=== PATIENT | female | born 1950 | race Caucasian/White ===

== ENCOUNTER 2018-05-07 20:37 | Outpatient (REF) | payer OTHER, SELFPAY ==
[2018-05-07 21:04] LABS: Anion Gap 9.6 mmol/L (3-11); BUN 26 mg/dL (7-18); CO2 30.4 mmol/L (21.0-32.0); CREATININE 0.95 mg/dL (0.55-1.02); Calcium 8.6 mg/dL (8.5-10.1); Chloride 103 mmol/L (98-107); Glucose 58 mg/dL (70-100); Potassium 4.5 mmol/L (3.5-5.1); Sodium 143 mmol/L (136-145)
== END 2018-05-07 20:38 ==
LOC: NCHCN 20:37
PROVIDERS: PCP Nurse Practitioner Family; Visit Provider Nurse Practitioner Family
DX: I10 Essential (primary) hypertension (principal); E11.49 Type 2 diabetes mellitus with other diabetic neurological complication; I70.0 Atherosclerosis of aorta; H91.90 Unspecified hearing loss, unspecified ear; N39.46 Mixed incontinence
CPT/HCPCS: 80048

== ENCOUNTER 2019-01-18 16:38 | Outpatient (REF) | payer OTHER, SELFPAY ==
--- NOTE | 2019-01-18 15:00 | ENDOMET_PTH ---
PATIENT: Leslie Dimas LOC: [facility] U#:[id number] AGE/SX: 68/F ROOM: RE01/18/[address]: Yenny Caceres : 1950 BED: DIS: 01/18/2019 SPEC #: [id number] RECD: 01/19/19 11:57 STATUS: WILMER REQ #: [id number] KARON: 01/18/19 15:[address]: Yenny Hightower DEPT: Surgical Specimen RECD BY: Lolis Irizarry ENTERED: 01/19/19 11:57 SP TYPE: Endomet OTHR DR: Harmony Morocho Tissues: 1 - ENDOMETRIUM BX/INOCENTE Procedures: GROSS AND MICRO LEVEL 4 Comments: [id number]
== END 2019-01-18 16:58 ==
LOC: NCHCN 16:38
PROVIDERS: PCP Nurse Practitioner Family; Visit Provider Nurse Practitioner Family
DX: N85.02 Endometrial intraepithelial neoplasia [EIN] (principal); N95.0 Postmenopausal bleeding; E66.9 Obesity, unspecified
CPT/HCPCS: 88305

== ENCOUNTER 2019-09-12 21:22 | Outpatient (REF) | payer OTHER, SELFPAY ==
[2019-09-12 21:57] LABS: COMMENT (LAB VIEW ONLY) 65.19 mg/dL
== END 2019-09-12 21:42 ==
LOC: NCHCN 21:22
PROVIDERS: PCP Nurse Practitioner Family; Visit Provider Nurse Practitioner Family
DX: E11.49 Type 2 diabetes mellitus with other diabetic neurological complication (principal); I10 Essential (primary) hypertension
CPT/HCPCS: 82043; 82570

== ENCOUNTER 2019-09-29 13:33 | Outpatient (REF) | payer OTHER, SELFPAY ==
[2019-09-29 21:30] LABS: Anion Gap 8.8 mmol/L (3-11); BUN 33 mg/dL (7-18); CO2 29.2 mmol/L (21.0-32.0); CREATININE 1.03 mg/dL (0.55-1.02); Calcium 9.4 mg/dL (8.5-10.1); Chloride 102 mmol/L (98-107); Estimated GFR 53.13 (mL/min/1.73m2); Glucose 87 mg/dL (74-106); Potassium 4.8 mmol/L (3.5-5.1); Sodium 140 mmol/L (136-145)
== END 2019-09-29 13:53 ==
LOC: NCHCN 13:33
PROVIDERS: PCP Nurse Practitioner Family; Visit Provider Nurse Practitioner Family
DX: E11.49 Type 2 diabetes mellitus with other diabetic neurological complication (principal); I10 Essential (primary) hypertension
CPT/HCPCS: 80048

== ENCOUNTER 2019-10-26 21:49 | Outpatient (REF) | payer OTHER, SELFPAY ==
[2019-10-26 21:51] LABS: Anion Gap 6.3 mmol/L (3-11); BUN 42 mg/dL (7-18); CO2 31.7 mmol/L (21.0-32.0); CREATININE 1.04 mg/dL (0.55-1.02); Calcium 9.4 mg/dL (8.5-10.1); Chloride 103 mmol/L (98-107); Estimated GFR 52.54 (mL/min/1.73m2); Glucose 100 mg/dL (74-106); Potassium 4.6 mmol/L (3.5-5.1); Sodium 141 mmol/L (136-145)
== END 2019-10-26 22:09 ==
LOC: NCHCN 21:49
PROVIDERS: PCP Nurse Practitioner Family; Visit Provider Nurse Practitioner Family
DX: I10 Essential (primary) hypertension (principal); E11.49 Type 2 diabetes mellitus with other diabetic neurological complication
CPT/HCPCS: 80048

== ENCOUNTER 2019-12-22 12:08 | Outpatient (REF) | payer OTHER, SELFPAY ==
[2019-12-22 20:34] LABS: Abs Immature Grans 0.09 k/cumm (0.0-0.09); Absolute Basophil Count 0.03 k/cumm (0.0-0.2); Absolute Lymphocyte Count 1.33 k/cumm (1.2-3.4); Absolute Monocyte Count 0.92 k/cumm (0.11-0.7); Basophils % 0.2; Eosinophils % 0.8; HCT 41.4 % (36.0-46.0); HGB 13.4 g/dL (12.0-15.5); Immature Grans % 0.6 %; Lymphocytes % 9.1; Mean Corp. HGB Concentration 32.4 g/dL (32.0-36.0); Mean Corpuscular Hemoglobin 27.8 pg (27.0-33.0); Mean Corpuscular Volume 85.9 fL (80-95); Mean Platelet Volume 9.5 fL (8.0-11.0); Monocytes % 6.3; Platelet Count 345 x1000/uL (130-400); RBC 4.82 m/cumm (4.00-5.20); RBC Distribution Width 14.7 % (11.7-14.6); White Blood Cell Count 14.63 k/cumm (4.4-10.8)
[2019-12-22 20:41] LABS: Absolute Eosinophil Count 0.12 k/cumm (0.0-0.7); Absolute Neutrophil Count 12.14 k/cumm (1.2-6.7)
[2019-12-22 21:23] LABS: ALT 27 U/L (14-59); AST 19 U/L (15-37); Albumin 4.1 g/dL (3.4-5.0); Alkaline Phosphatase 86 U/L (46-116); BUN 59 mg/dL (7-18); Bilirubin, Total 0.5 mg/dL (0.2-1.0); Calcium 10.2 mg/dL (8.5-10.1); Chloride 99 mmol/L (98-107); Estimated GFR 34.43 (mL/min/1.73m2); Glucose 169 mg/dL (74-106); Lipase 63 U/L (73-393); Potassium 5.7 mmol/L (3.5-5.1); Sodium 137 mmol/L (136-145)
[2019-12-22 21:24] LABS: Hemoglobin A1C 7.2 % (3.8-5.6)
[2019-12-22 22:01] LABS: Vitamin B12 589 pg/mL (193-986)
== END 2019-12-22 12:28 ==
LOC: NCHCN 12:08
PROVIDERS: PCP Nurse Practitioner Family; Visit Provider Nurse Practitioner Family
DX: E11.49 Type 2 diabetes mellitus with other diabetic neurological complication (principal); I10 Essential (primary) hypertension; R11.0 Nausea; R63.4 Abnormal weight loss
CPT/HCPCS: 80053; 83690; 82607; 83036; 84443; 85025

== ENCOUNTER 2019-12-30 09:54 | Outpatient (REF) | payer OTHER, SELFPAY ==
[2019-12-30 20:06] LABS: Abs Immature Grans 0.07 k/cumm (0.0-0.09); Absolute Basophil Count 0.03 k/cumm (0.0-0.2); Absolute Lymphocyte Count 1.69 k/cumm (1.2-3.4); Absolute Monocyte Count 1.08 k/cumm (0.11-0.7); Basophils % 0.3; Eosinophils % 1.1; HCT 37.9 % (36.0-46.0); HGB 12.2 g/dL (12.0-15.5); Immature Grans % 0.6 %; Lymphocytes % 14.8; Mean Corp. HGB Concentration 32.2 g/dL (32.0-36.0); Mean Corpuscular Hemoglobin 28.2 pg (27.0-33.0); Mean Corpuscular Volume 87.5 fL (80-95); Mean Platelet Volume 9.6 fL (8.0-11.0); Monocytes % 9.5; Neutrophils % 73.7; Platelet Count 347 x1000/uL (130-400); RBC 4.33 m/cumm (4.00-5.20); RBC Distribution Width 14.5 % (11.7-14.6); White Blood Cell Count 11.41 k/cumm (4.4-10.8)
[2019-12-30 20:12] LABS: Absolute Eosinophil Count 0.13 k/cumm (0.0-0.7); Absolute Neutrophil Count 8.41 k/cumm (1.2-6.7)
[2019-12-30 20:17] LABS: Anion Gap 9.9 mmol/L (3-11); BUN 56 mg/dL (7-18); CO2 28.1 mmol/L (21.0-32.0); CREATININE 1.29 mg/dL (0.55-1.02); Calcium 9.1 mg/dL (8.5-10.1); Chloride 102 mmol/L (98-107); Estimated GFR 40.98 (mL/min/1.73m2); Glucose 192 mg/dL (74-106); Potassium 5.2 mmol/L (3.5-5.1); Sodium 140 mmol/L (136-145)
== END 2019-12-30 10:14 ==
LOC: NCHCN 09:54
PROVIDERS: PCP Nurse Practitioner Family; Visit Provider Nurse Practitioner Family
DX: R11.0 Nausea (principal)
CPT/HCPCS: 80048; 85025

== ENCOUNTER 2020-08-16 12:07 | Outpatient (REF) | payer OTHER, SELFPAY ==
[2020-08-16 20:57] LABS: HCT 36.8 % (36.0-46.0); HGB 11.7 g/dL (11.2-15.7); MCH 27.9 pg (27.0-33.0); MCHC 31.8 % (32.0-36.0); MCV 87.8 fL (80-95); MPV 9.8 fL (8.0-11.0); Platelet Count 278 10^3/uL (130-400); RBC 4.19 10^6/uL (3.93-5.22); RDW 14.2 % (11.7-14.6); RDW-SD 45.1 fL; WBC 11.54 10^3/uL (4.4-10.8)
[2020-08-16 21:26] LABS: Iron 43 ug/dL (50-170)
[2020-08-16 21:48] LABS: Vitamin D 25 Total 14.1 ng/ml (30-100)
[2020-08-16 22:02] LABS: BUN 59 mg/dL (7-18); CREATININE 1.33 mg/dL (0.55-1.02); Calcium 9.2 mg/dL (8.5-10.1); Chloride 100 mmol/L (98-107); Estimated GFR 39.44 (mL/min/1.73m2); Glucose 130 mg/dL (74-106); Magnesium 1.4 mg/dL (1.8-2.4); Potassium 4.3 mmol/L (3.5-5.1); Sodium 139 mmol/L (136-145); TSH 6.55 uIU/mL (0.36-3.74); Vitamin B12 469 pg/mL (193-986)
[2020-08-17 11:54] LABS: FREE T4 0.88 ng/dL (0.76-1.46)
[2020-08-17 12:20] LABS: Ferritin 130 ng/mL (8-252)
== END 2020-08-16 12:27 ==
LOC: NCHCN 12:07
PROVIDERS: PCP Nurse Practitioner Family; Visit Provider Nurse Practitioner Family
DX: R94.6 Abnormal results of thyroid function studies (principal); E61.1 Iron deficiency; E11.49 Type 2 diabetes mellitus with other diabetic neurological complication; I10 Essential (primary) hypertension; E66.01 Morbid (severe) obesity due to excess calories; Z98.84 Bariatric surgery status; N39.46 Mixed incontinence; G47.8 Other sleep disorders
CPT/HCPCS: 80048; 82306; 85027; 82607; 82728; 83540; 83735; 84439; 84443

== ENCOUNTER 2020-10-17 19:42 | Outpatient (REF) | payer OTHER, SELFPAY ==
[2020-10-17 22:39] LABS: Anion Gap 6.8 mmol/L (3-11); BUN 42 mg/dL (7-18); CO2 31.2 mmol/L (21.0-32.0); CREATININE 1.27 mg/dL (0.55-1.02); Calcium 9.4 mg/dL (8.5-10.1); Chloride 100 mmol/L (98-107); Glucose 146 mg/dL (74-106); Magnesium 1.9 mg/dL (1.8-2.4); Potassium 4.5 mmol/L (3.5-5.1); Sodium 138 mmol/L (136-145); TSH 4.61 uIU/mL (0.36-3.74)
[2020-10-18 04:53] LABS: Vitamin D 25 Total 25.1 ng/ml (30-100)
[2020-10-19 19:08] LABS: Thyroperoxidase Antibody <28 U/mL (<=60)
[2020-10-19 19:12] LABS: Thyroglobulin Antibody 19 U/mL (<=60)
== END 2020-10-17 20:02 ==
LOC: NCHCN 19:42
PROVIDERS: PCP Nurse Practitioner Family; Visit Provider Nurse Practitioner Family
DX: I10 Essential (primary) hypertension (principal); E83.42 Hypomagnesemia; E55.9 Vitamin D deficiency, unspecified; R94.6 Abnormal results of thyroid function studies
CPT/HCPCS: 80048; 82306; 83735; 84443; 86376; 86800

== ENCOUNTER 2020-12-18 13:32 | Outpatient (REF) | payer OTHER, SELFPAY ==
[2020-12-18 14:01] LABS: HCT 37.7 % (36.0-46.0); HGB 11.9 g/dL (11.2-15.7); MCH 28.3 pg (27.0-33.0); MCHC 31.6 % (32.0-36.0); MCV 89.5 fL (80-95); MPV 9.4 fL (8.0-11.0); Platelet Count 274 10^3/uL (130-400); RBC 4.21 10^6/uL (3.93-5.22); RDW 14.2 % (11.7-14.6); RDW-SD 46.5 fL
[2020-12-18 14:18] LABS: Iron 49 ug/dL (50-170); Total Iron Binding Capacity 364 ug/dL (250-450); Transferrin Sat 13 % (15-50)
[2020-12-18 14:23] LABS: Hemoglobin A1C 8.5 % (<5.7)
[2020-12-18 14:35] LABS: ALT 26 U/L (14-59); AST 17 U/L (15-37); Albumin 3.7 g/dL (3.4-5.0); Alkaline Phosphatase 78 U/L (46-116); Anion Gap 10.1 mmol/L (3-11); BUN 48 mg/dL (7-18); Bilirubin, Total 0.4 mg/dL (0.2-1.0); CO2 30.9 mmol/L (21.0-32.0); CREATININE 1.3 mg/dL (0.55-1.02); Calcium 9.2 mg/dL (8.5-10.1); Chloride 99 mmol/L (98-107); Estimated GFR 40.49 (mL/min/1.73m2); Ferritin 115 ng/mL (8-252); Glucose 218 mg/dL (74-106); Magnesium 1.8 mg/dL (1.8-2.4); Potassium 4.6 mmol/L (3.5-5.1); Sodium 140 mmol/L (136-145); TSH (W/Ref FT4) 2.55 uIU/mL (0.36-3.74); Total Protein 7.5 g/dL (6.4-8.2); Vitamin B12 525 pg/mL (193-986)
[2020-12-19 10:40] LABS: Vitamin D 25 Total 30.6 ng/ml (30-100)
== END 2020-12-18 13:33 | disposition home or self-care (01) ==
LOC: NCHCN 13:32
PROVIDERS: PCP Nurse Practitioner Family; Visit Provider Nurse Practitioner Family
DX: E11.49 Type 2 diabetes mellitus with other diabetic neurological complication (principal); I10 Essential (primary) hypertension; R94.6 Abnormal results of thyroid function studies; E61.1 Iron deficiency; K90.9 Intestinal malabsorption, unspecified; E55.9 Vitamin D deficiency, unspecified; E83.42 Hypomagnesemia; R82.998 Other abnormal findings in urine
CPT/HCPCS: 80053; 82306; 85027; 82607; 82728; 83036; 83540; 83550; 83735; 84443; 87086

== ENCOUNTER 2021-03-19 12:18 | Outpatient (REF) | payer OTHER, SELFPAY ==
[2021-03-19 21:18] LABS: Anion Gap 8.1 mmol/L (3-11); BUN 55 mg/dL (7-18); CO2 30.9 mmol/L (21.0-32.0); CREATININE 1.5 mg/dL (0.55-1.02); Calcium 9.3 mg/dL (8.5-10.1); Chloride 102 mmol/L (98-107); Estimated GFR 34.33 (mL/min/1.73m2); Glucose 100 mg/dL (74-106); Potassium 4.3 mmol/L (3.5-5.1); Sodium 141 mmol/L (136-145)
[2021-03-21 11:29] LABS: Hepatitis C Ab w Rflx HCV PCR Negative (Negative)
== END 2021-03-19 12:19 | disposition home or self-care (01) ==
LOC: NCHCN 12:18
PROVIDERS: PCP Nurse Practitioner Family; Visit Provider Nurse Practitioner Family
DX: E11.49 Type 2 diabetes mellitus with other diabetic neurological complication (principal); I10 Essential (primary) hypertension; Z11.59 Encounter for screening for other viral diseases
CPT/HCPCS: 80048; 86803

== ENCOUNTER 2021-04-09 12:54 | Outpatient (REF) | payer OTHER, SELFPAY ==
[2021-04-09 21:19] LABS: Anion Gap 9.3 mmol/L (3-11); BUN 39 mg/dL (7-18); CO2 28.7 mmol/L (21.0-32.0); CREATININE 1.3 mg/dL (0.55-1.02); Calcium 9.2 mg/dL (8.5-10.1); Chloride 104 mmol/L (98-107); Estimated GFR 40.38 (mL/min/1.73m2); Glucose 180 mg/dL (74-106); Potassium 5.3 mmol/L (3.5-5.1); Sodium 142 mmol/L (136-145)
== END 2021-04-09 12:55 | disposition home or self-care (01) ==
LOC: NCHCN 12:54
PROVIDERS: PCP Nurse Practitioner Family; Visit Provider Nurse Practitioner Family
DX: N18.9 Chronic kidney disease, unspecified (principal)
CPT/HCPCS: 80048

== ENCOUNTER 2021-04-29 11:03 | Outpatient (REF) | payer OTHER, SELFPAY ==
[2021-04-29 15:54] LABS: Anion Gap 7.6 mmol/L (3-11); BUN 59 mg/dL (7-18); CO2 30.4 mmol/L (21.0-32.0); CREATININE 1.2 mg/dL (0.55-1.02); Calcium 9.6 mg/dL (8.5-10.1); Chloride 102 mmol/L (98-107); Estimated GFR 44.29 (mL/min/1.73m2); Glucose 90 mg/dL (74-106); Potassium 4.7 mmol/L (3.5-5.1); Sodium 140 mmol/L (136-145)
== END 2021-04-29 11:04 | disposition home or self-care (01) ==
LOC: NCHCN 11:03
PROVIDERS: PCP Nurse Practitioner Family; Visit Provider Nurse Practitioner Family
DX: I51.9 Heart disease, unspecified (principal); I70.0 Atherosclerosis of aorta; N18.30 Chronic kidney disease, stage 3 unspecified; E66.01 Morbid (severe) obesity due to excess calories
CPT/HCPCS: 80048

== ENCOUNTER 2021-08-08 13:15 | Outpatient (REF) | payer MEDICARE, SELFPAY ==
[2021-08-09 01:59] LABS: COMMENT (LAB VIEW ONLY) 86.68 mg/dL; Microalb ug/mg Crea 12.8 ug/mg Cr
== END 2021-08-08 13:16 | disposition home or self-care (01) ==
LOC: NCHCN 13:15
PROVIDERS: PCP Nurse Practitioner Family; Visit Provider Nurse Practitioner Family
DX: I10 Essential (primary) hypertension (principal); E11.49 Type 2 diabetes mellitus with other diabetic neurological complication
CPT/HCPCS: 82043; 82570

== ENCOUNTER 2021-09-16 15:25 | Outpatient (REF) | payer MEDICARE, SELFPAY ==
[2021-09-18 11:37] LABS: COVID-19 RT-PCR UVMMC Result Negative (Negative)
== END 2021-09-16 15:26 | disposition home or self-care (01) ==
LOC: NCHCN 15:25
PROVIDERS: PCP Nurse Practitioner Family; Visit Provider Family Medicine
DX: J06.9 Acute upper respiratory infection, unspecified (principal); Z20.822 Contact with and (suspected) exposure to COVID-19
CPT/HCPCS: U0003; U0005

== ENCOUNTER 2021-10-10 18:32 | Outpatient (REF) | payer MEDICARE, SELFPAY ==
[2021-10-10 21:59] LABS: HCT 37.5 % (36.0-46.0); HGB 11.5 g/dL (11.2-15.7); MCH 27.3 pg (27.0-33.0); MCHC 30.7 % (32.0-36.0); MCV 88.9 fL (80-95); Platelet Count 286 10^3/uL (130-400); RBC 4.22 10^6/uL (3.93-5.22); RDW 14.4 % (11.7-14.6); RDW-SD 46.3 fL; WBC 11.75 10^3/uL (4.4-10.8)
[2021-10-10 22:17] LABS: ALT 20 U/L (14-59); AST 14 U/L (15-37); Albumin 3.5 g/dL (3.4-5.0); Alkaline Phosphatase 76 U/L (46-116); BUN 45 mg/dL (7-18); Bilirubin, Total 0.5 mg/dL (0.2-1.0); CREATININE 1.4 mg/dL (0.55-1.02); Calcium 9.4 mg/dL (8.5-10.1); Chloride 101 mmol/L (98-107); Estimated GFR 37.07 (mL/min/1.73m2); Glucose 196 mg/dL (74-106); Lipase 33 U/L (73-393); Potassium 4.7 mmol/L (3.5-5.1); Sodium 140 mmol/L (136-145); Total Protein 7.2 g/dL (6.4-8.2)
== END 2021-10-10 18:33 | disposition home or self-care (01) ==
LOC: NCHCN 18:32
PROVIDERS: PCP Nurse Practitioner Family; Visit Provider Internal Medicine
DX: R10.9 Unspecified abdominal pain (principal); R11.0 Nausea
CPT/HCPCS: 80053; 83690; 85027

== ENCOUNTER 2021-10-28 08:00 | Outpatient (REF) | payer MEDICARE, SELFPAY ==
[2021-10-28 21:07] LABS: ALT 22 U/L (14-59); AST 11 U/L (15-37); Albumin 3.3 g/dL (3.4-5.0); Alkaline Phosphatase 77 U/L (46-116); Anion Gap 5.4 mmol/L (3-11); BUN 42 mg/dL (7-18); Bilirubin, Total 0.2 mg/dL (0.2-1.0); CO2 32.6 mmol/L (21.0-32.0); CREATININE 1.3 mg/dL (0.55-1.02); Calcium 8.6 mg/dL (8.5-10.1); Chloride 100 mmol/L (98-107); Estimated GFR 40.38 (mL/min/1.73m2); Glucose 202 mg/dL (74-106); Magnesium 2.1 mg/dL (1.8-2.4); Sodium 138 mmol/L (136-145); TSH 0.81 uIU/mL (0.36-3.74)
[2021-10-28 21:44] LABS: Vitamin D 25 Total 30.4 ng/mL (30-100)
== END 2021-10-28 08:01 | disposition home or self-care (01) ==
LOC: NCHCN 08:00
PROVIDERS: PCP Nurse Practitioner Family; Visit Provider Nurse Practitioner Family
DX: E11.49 Type 2 diabetes mellitus with other diabetic neurological complication (principal); I10 Essential (primary) hypertension; E83.42 Hypomagnesemia; N18.30 Chronic kidney disease, stage 3 unspecified; R94.6 Abnormal results of thyroid function studies
CPT/HCPCS: 80053; 82306; 83036; 83735; 84443

== ENCOUNTER 2021-11-14 21:15 | Outpatient (REF) | payer MEDICARE, SELFPAY ==
[2021-11-14 21:41] LABS: BUN 39 mg/dL (7-18); CREATININE 1.5 mg/dL (0.55-1.02); Estimated GFR 34.23 (mL/min/1.73m2)
== END 2021-11-14 21:16 | disposition home or self-care (01) ==
LOC: NCHCN 21:15
PROVIDERS: PCP Nurse Practitioner Family; Visit Provider Nurse Practitioner Family
DX: N18.30 Chronic kidney disease, stage 3 unspecified (principal); I10 Essential (primary) hypertension
CPT/HCPCS: 84520; 82565

== ENCOUNTER 2021-12-11 21:28 | Outpatient (REF) | payer MEDICARE, SELFPAY ==
[2021-12-11 21:34] LABS: Bacteria Few HPF (Negative); C & S Indicated? C&S Done As Ordered; Casts Negative LPF (Negative); Crystals Negative HPF (Negative); Epithelial Cells Few HPF (Negative); Mucus Negative (Negative)
== END 2021-12-11 21:29 | disposition home or self-care (01) ==
LOC: NCHCN 21:28
PROVIDERS: PCP Nurse Practitioner Family; Visit Provider Internal Medicine
DX: R10.10 Upper abdominal pain, unspecified (principal)
CPT/HCPCS: 81015; 87086

== ENCOUNTER 2022-05-10 15:55 | Outpatient (REF) | payer MEDICARE, SELFPAY ==
[2022-05-09 21:50] LABS: Anion Gap 9.9 mmol/L (3-11); BUN 47 mg/dL (7-18); CO2 29.1 mmol/L (21.0-32.0); CREATININE 1.6 mg/dL (0.55-1.02); Calcium 9.3 mg/dL (8.5-10.1); Chloride 103 mmol/L (98-107); Estimated GFR 31.68 (mL/min/1.73m2); Glucose 259 mg/dL (74-106); Potassium 5.1 mmol/L (3.5-5.1); Sodium 142 mmol/L (136-145)
[2022-05-09 21:57] LABS: Hemoglobin A1C 8.5 % (<5.7)
== END 2022-05-10 15:56 | disposition home or self-care (01) ==
LOC: NCHCN 15:55
PROVIDERS: PCP Nurse Practitioner Family; Visit Provider Nurse Practitioner Family
DX: E11.49 Type 2 diabetes mellitus with other diabetic neurological complication (principal); I10 Essential (primary) hypertension; N18.30 Chronic kidney disease, stage 3 unspecified
CPT/HCPCS: 80048; 83036

== ENCOUNTER 2022-08-26 14:54 | Outpatient (REF) | payer MEDICARE, SELFPAY ==
[2022-08-26 15:56] LABS: Anion Gap 6.8 mmol/L (3-11); BUN 39 mg/dL (7-18); CO2 29.2 mmol/L (21.0-32.0); CREATININE 1.2 mg/dL (0.55-1.02); Calcium 9.8 mg/dL (8.5-10.1); Calculated LDL 81 mg/dL (<100); Chloride 101 mmol/L (98-107); Cholesterol 153 mg/dL (<200); Estimated GFR 48.09 (mL/min/1.73m2); Glucose 206 mg/dL (74-106); HDL Cholesterol 38 mg/dL (40-60); Potassium 4.6 mmol/L (3.5-5.1); Sodium 137 mmol/L (136-145); TSH 2.29 uIU/mL (0.36-3.74); Triglyceride 170 mg/dL (<150)
[2022-08-26 15:57] LABS: Hemoglobin A1C 8.3 % (<5.7)
[2022-08-26 16:47] LABS: COMMENT (LAB VIEW ONLY) 76.95 mg/dL
[2022-08-26 16:49] LABS: Microalb ug/mg Crea 366.2 ug/mg Cr
== END 2022-08-26 14:55 | disposition home or self-care (01) ==
LOC: NCHCN 14:54
PROVIDERS: PCP Nurse Practitioner Family; Visit Provider Nurse Practitioner Family
DX: E03.9 Hypothyroidism, unspecified (principal); E11.49 Type 2 diabetes mellitus with other diabetic neurological complication; I10 Essential (primary) hypertension; E78.2 Mixed hyperlipidemia
CPT/HCPCS: 80048; 80061; 82043; 82570; 83036; 84443

== ENCOUNTER 2023-01-30 16:47 | Outpatient (REF) | payer MEDICARE, SELFPAY ==
[2023-01-30 20:53] LABS: Abs Immature Grans 0.07 10^3/uL (0.0-0.06); Absolute Basophil Count 0.07 10^3/uL (0.0-0.2); Absolute Eosinophil Count 0.15 10^3/uL (0.0-0.7); Absolute Lymphocyte Count 1.51 10^3/uL (1.2-3.4); Absolute Monocyte Count 0.89 10^3/uL (0.1-0.8); Basophils % 0.6; Eosinophils % 1.3; HGB 12.8 g/dL (11.2-15.7); Immature Grans % 0.6; Lymphocytes % 13.5; MCH 28.4 pg (27.0-33.0); MCV 89 fL (80-95); MPV 8.9 fL (8.0-11.0); Platelet Count 281 10^3/uL (130-400); RDW 13.3 % (11.7-14.6); WBC 11.17 10^3/uL (4.4-10.8)
[2023-01-30 20:55] LABS: Absolute Neutrophil Count 8.49 10^3/uL (1.2-6.7)
[2023-01-30 21:07] LABS: Hemoglobin A1C 9.3 % (<5.7)
[2023-01-30 21:09] LABS: Anion Gap 3.2 mmol/L (3-11); BUN 25 mg/dL (7-18); CO2 32.8 mmol/L (21.0-32.0); CREATININE 1.1 mg/dL (0.55-1.02); Chloride 101 mmol/L (98-107); Estimated GFR 53.39 (mL/min/1.73m2); Glucose 237 mg/dL (74-106); NT-proBNP 109 pg/mL (<300); Potassium 4.5 mmol/L (3.5-5.1); Sodium 137 mmol/L (136-145)
== END 2023-01-30 16:48 | disposition home or self-care (01) ==
LOC: NCHCN 16:47
PROVIDERS: PCP Nurse Practitioner Family; Visit Provider Family Medicine
DX: E11.49 Type 2 diabetes mellitus with other diabetic neurological complication (principal); R06.02 Shortness of breath; I10 Essential (primary) hypertension; R53.83 Other fatigue
CPT/HCPCS: 80048; 83036; 83880; 85025

== ENCOUNTER 2023-02-16 15:56 | Outpatient (REF) | payer MEDICARE, SELFPAY ==
[2023-02-16 21:29] LABS: Anion Gap 5.2 mmol/L (3-11); BUN 51 mg/dL (7-18); CO2 29.8 mmol/L (21.0-32.0); CREATININE 1.2 mg/dL (0.55-1.02); Calcium 8.9 mg/dL (8.5-10.1); Chloride 103 mmol/L (98-107); Estimated GFR 48.09 (mL/min/1.73m2); Glucose 147 mg/dL (74-106); Potassium 4.7 mmol/L (3.5-5.1); Sodium 138 mmol/L (136-145)
== END 2023-02-16 15:57 | disposition home or self-care (01) ==
LOC: NCHCN 15:56
PROVIDERS: PCP Nurse Practitioner Family; Visit Provider Nurse Practitioner Family
DX: I10 Essential (primary) hypertension (principal)
CPT/HCPCS: 80048

== ENCOUNTER 2023-06-16 19:10 | Outpatient (REF) | payer MEDICARE, SELFPAY ==
[2023-06-16 22:44] LABS: COMMENT (LAB VIEW ONLY) 135.27 mg/dL; Microalb ug/mg Crea 23.1 ug/mg Cr
== END 2023-06-16 19:11 | disposition home or self-care (01) ==
LOC: NCHCN 19:10
PROVIDERS: PCP Nurse Practitioner Family; Visit Provider Nurse Practitioner Family
DX: E11.49 Type 2 diabetes mellitus with other diabetic neurological complication (principal)
CPT/HCPCS: 82043; 82570

== ENCOUNTER 2023-10-22 10:31 | Outpatient (REF) | payer MEDICARE, SELFPAY ==
[2023-10-22 14:49] LABS: HCT 38.6 % (36.0-46.0); HGB 12.2 g/dL (11.2-15.7); MCH 28.2 pg (27.0-33.0); MCHC 31.6 % (32.0-36.0); MCV 89 fL (80-95); MPV 9.5 fL (8.0-11.0); Platelet Count 256 10^3/uL (130-400); RBC 4.33 10^6/uL (3.93-5.22); RDW 13.7 % (11.7-14.6); RDW-SD 44.7 fL
[2023-10-22 15:27] LABS: Anion Gap 9.4 mmol/L (3-11); BUN 48 mg/dL (7-18); CO2 29.6 mmol/L (21.0-32.0); CREATININE 1.3 mg/dL (0.55-1.02); Calcium 9.4 mg/dL (8.5-10.1); Calculated LDL 100 mg/dL (<100); Chloride 102 mmol/L (98-107); Cholesterol 175 mg/dL (<200); Estimated GFR 43.42 (mL/min/1.73m2); Glucose 133 mg/dL (74-106); HDL Cholesterol 37 mg/dL (40-60); Magnesium 2.4 mg/dL (1.8-2.4); Potassium 4.5 mmol/L (3.5-5.1); Sodium 141 mmol/L (136-145); Triglyceride 192 mg/dL (<150)
== END 2023-10-22 10:32 | disposition home or self-care (01) ==
LOC: NCHCN 10:31
PROVIDERS: PCP Nurse Practitioner Family; Visit Provider Nurse Practitioner Family
DX: E11.21 Type 2 diabetes mellitus with diabetic nephropathy (principal)
CPT/HCPCS: 80048; 80061; 85027; 83735; 84443

== ENCOUNTER 2024-05-03 16:57 | Outpatient (REF) | payer MEDICARE, SELFPAY ==
[2024-05-03 14:56] LABS: Abs Immature Grans 0.07 10^3/uL (0.0-0.06); Absolute Basophil Count 0.05 10^3/uL (0.0-0.2); Absolute Eosinophil Count 0.14 10^3/uL (0.0-0.7); Absolute Lymphocyte Count 1.22 10^3/uL (1.2-3.4); Absolute Monocyte Count 0.96 10^3/uL (0.1-0.8); Absolute Neutrophil Count 9.27 10^3/uL (1.2-6.7); Basophils % 0.4 %; Eosinophils % 1.2 %; HCT 41.6 % (36.0-46.0); HGB 13.5 g/dL (11.2-15.7); Immature Grans % 0.6 %; Lymphocytes % 10.4 %; MCH 28.2 pg (27.0-33.0); MCHC 32.5 % (32.0-36.0); MCV 87 fL (80-95); MPV 9.2 fL (8.0-11.0); Monocytes % 8.2 %; Neutrophils % 79.2 %; Platelet Count 240 10^3/uL (130-400); RBC 4.79 10^6/uL (3.93-5.22); RDW-SD 45.1 fL; WBC 11.71 10^3/uL (4.4-10.8)
[2024-05-03 15:36] LABS: Iron 37 ug/dL (50-170); Total Iron Binding Capacity 322 ug/dL (250-450); Transferrin Sat 11 % (15-50)
[2024-05-03 15:58] LABS: ALT 26 U/L (14-59); AST 22 U/L (15-37); Albumin 3.7 g/dL (3.4-5.0); Alkaline Phosphatase 77 U/L (46-116); Anion Gap 7.2 mmol/L (3-11); BUN 28 mg/dL (7-18); Bilirubin, Total 0.35 mg/dL (0.2-1.0); CO2 31.8 mmol/L (21.0-32.0); CREATININE 1.2 mg/dL (0.55-1.02); Chloride 102 mmol/L (98-107); Glucose 116 mg/dL (74-106); NT-proBNP 114 pg/mL (<300); Potassium 4.3 mmol/L (3.5-5.1); Sodium 141 mmol/L (136-145); TSH 2.88 uIU/Ml (0.36-3.74); Total Protein 7.1 g/dL (6.4-8.2); Vitamin B12 815 pg/mL (193-986); Vitamin D 25 Total 41.3 ng/mL (30-100)
[2024-05-03 19:12] LABS: Hemoglobin A1C 7.5 % (<5.7)
== END 2024-05-03 16:58 | disposition home or self-care (01) ==
LOC: NCHCN 16:57
PROVIDERS: PCP Nurse Practitioner Family; Visit Provider Nurse Practitioner Family
DX: I50.30 Unspecified diastolic (congestive) heart failure (principal); E55.9 Vitamin D deficiency, unspecified
CPT/HCPCS: 80053; 82306; 82607; 83036; 83540; 83550; 83880; 84443; 85025

== ENCOUNTER 2024-09-08 22:47 | Outpatient (REF) | payer MEDICARE, SELFPAY ==
[2024-09-08 22:21] LABS: Abs Immature Grans 1.55 10^3/uL (0.0-0.06); HCT 28.2 % (36.0-46.0); HGB 9.3 g/dL (11.2-15.7); MCH 28.3 pg (27.0-33.0); MCV 86 fL (80-95); MPV 9.7 fL (8.0-11.0); Platelet Count 437 10^3/uL (130-400); RBC 3.29 10^6/uL (3.93-5.22); RDW 14.7 % (11.7-14.6); RDW-SD 44.7 fL; WBC 13.33 10^3/uL (4.4-10.8)
[2024-09-08 22:32] LABS: ALT 25 U/L (14-59); AST 39 U/L (15-37); Albumin 2.4 g/dL (3.4-5.0); Alkaline Phosphatase 60 U/L (46-116); Anion Gap 8.5 mmol/L (3-11); BUN 27 mg/dL (7-18); Bilirubin, Total 0.36 mg/dL (0.2-1.0); CO2 27.5 mmol/L (21.0-32.0); CREATININE 1.4 mg/dL (0.55-1.02); Calcium 8.8 mg/dL (8.5-10.1); Chloride 99 mmol/L (98-107); Estimated GFR 39.48 (mL/min/1.73m2); Glucose 81 mg/dL (74-106); Potassium 3.7 mmol/L (3.5-5.1); Sodium 135 mmol/L (136-145); Total Protein 6.7 g/dL (6.4-8.2)
[2024-09-08 22:38] LABS: Absolute Basophil Count 0.13 10^3/uL (0.0-0.2); Absolute Neutrophil Count 8.53 10^3/uL (1.2-6.7); Diff Comment Manual Differential; Metamyelocytes % 6; Myelocytes % 5; RBC Morphology Normal
== END 2024-09-08 22:48 | disposition home or self-care (01) ==
LOC: NCHCN 22:47
PROVIDERS: PCP Nurse Practitioner Family; Visit Provider Nurse Practitioner Family
DX: N17.9 Acute kidney failure, unspecified (principal); D64.9 Anemia, unspecified
CPT/HCPCS: 80053; 85025

== ENCOUNTER 2025-05-18 11:50 | Outpatient (REF) | payer MEDICARE, SELFPAY ==
[2025-05-18 15:28] LABS: Abs Immature Grans 0.05 10^3/uL (0.0-0.06); HCT 28.2 % (36.0-46.0); HGB 9.0 g/dL (11.2-15.7); Immature Grans % 0.6 %; MCH 30.0 pg (27.0-33.0); MCHC 31.9 % (32.0-36.0); MCV 94 fL (80-95); MPV 8.5 fL (8.0-11.0); Platelet Count 186 10^3/uL (130-400); RBC 3.00 10^6/uL (3.93-5.22); RDW 15.8 % (11.7-14.6); RDW-SD 54.2 fL; WBC 7.98 10^3/uL (4.4-10.8)
[2025-05-18 15:59] LABS: ALT 33 U/L (14-59); AST 40 U/L (15-37); Albumin 2.9 g/dL (3.4-5.0); Alkaline Phosphatase 121 U/L (46-116); Anion Gap 5.4 mmol/L (3-11); BUN 32 mg/dL (7-18); Bilirubin, Total 0.6 mg/dL (0.2-1.0); CO2 34.6 mmol/L (21.0-32.0); Calcium 9.3 mg/dL (8.5-10.1); Chloride 97 mmol/L (98-107); Estimated GFR 42.88 (mL/min/1.73m2); Glucose 177 mg/dL (74-106); Potassium 4.3 mmol/L (3.5-5.1); Sodium 137 mmol/L (136-145); TSH 0.44 uIU/mL (0.36-3.74); Total Protein 7.2 g/dL (6.4-8.2)
== END 2025-05-18 11:51 | disposition home or self-care (01) ==
LOC: NCHCN 11:50
PROVIDERS: PCP Nurse Practitioner Family; Visit Provider Nurse Practitioner Family
DX: Z13.89 Encounter for screening for other disorder (principal); R53.83 Other fatigue
CPT/HCPCS: 80053; 84443; 85025